=== PATIENT | male | born 1955 | race Caucasian/White ===

== ENCOUNTER 2018-05-12 07:28 | Day surgery (SDC) | payer OTHER ==
--- NOTE | 2018-05-07 14:49 | RAD REPORT ---
EXAM DESCRIPTION: Matthias Slater (2 Views)05/07/2018 2:39 pm CLINICAL HISTORY: Abdominal pain/preop for umbilical surgery COMPARISON: None FINDINGS: The lungs appear clear of acute infiltrate. The heart is normal size IMPRESSION: No acute abnormalities displayed
--- NOTE | 2018-05-07 15:13 | EKG ---
Test Date: 2018-05-07 Test Time: 14:25:23 Strategic Planning Analyst: KAROL MEASUREMENT RESULTS: Intervals: Rate: 88 LA: 152 QRSD: 100 QT: 372 QTc: 450 Susan: P: 23 LA: 152 QRS: -23 T: 39 INTERPRETIVE STATEMENTS: Normal sinus rhythm Normal ECG Compared to ECG 10/29/2001 12:49:00 No significant changes Electronically Signed On 05-07-18 15:12:40 CDT by Damien Cedeño
[2018-05-07 15:18] LABS: Potassium 4.1 mmol/L (3.5-5.1)
[2018-05-07 15:22] LABS: Absolute Lymphocytes (CBC) 1.8 K/uL (0.7-4.9); Absolute Monocytes 0.6 K/uL (0.1-1.3); Basophils % 0.8 % (0-1.3); Eosinophils % 3.5 % (0-4.4); Hematocrit 54.4 % (39.6-49.0); MCH 30.8 pg (27.0-35.0); MPV 9.9 fL (7.6-11.3); Monocytes % 6.2 % (3.3-12.3); RBC Red Blood Cell Count 5.91 M/uL (4.33-5.43)
[2018-05-12] MEDS ORDERED: PROPOFOL 200 MG/20 ML VIAL IV ONE (08:00)
[2018-05-12] MEDS ORDERED: LIDOCAINE 2% MPF 5 ML VIAL ONE (08:01)
[2018-05-12] MEDS ORDERED: CEFAZOLIN/SWI 1gm 1 GM/10 ML SYR ONE (08:01)
[2018-05-12] MEDS ORDERED: GLYCOPYRROLATE 0.2 MG/ML SYR ONE (08:01)
[2018-05-12] MEDS ORDERED: FENTANYL CITR 250 MCG/5 ML ONE (08:02)
[2018-05-12] MEDS ORDERED: ONDANSETRON HCL 40 MG/20 ML VIAL ONE (08:04)
[2018-05-12] MEDS ORDERED: ROCURONIUM 50 MG/5 ML VIAL IV ONE (08:04)
[2018-05-12] MEDS ORDERED: NEOSTIGMINE 1 MG/ML -5 ML SYRINGE ONE (08:04)
[2018-05-12] MEDS: NA CHLORIDE 0.9% 1,000 ML ONE ×2 (08:18→08:42)
[2018-05-12] MEDS ORDERED: MIDAZOLAM HCL 2 MG/2 ML INJ ONE (08:47)
--- NOTE | 2018-05-12 10:14 | P.BOP ---
Preoperative diagnosis: periumbilical mass Postoperative diagnosis: same Primary procedure: Excisional biopsy of periumbilical mass, suture removal x 4 Estimated blood loss: <10cc Specimen: suture/mass Findings: periumbical mass with 4 prolene sutures. possible suture granuloma Anesthesia: General Complications: None Transferred to: Recovery Room Condition: Good
--- NOTE | 2018-05-12 23:02 | DS ---
Date of Discharge: 05/12/2018 Diagnosis: Periumbilical mass. Procedure: Excisional biopsy of periumbilical mass and suture removal x4. Disposition: Home. Activity: As tolerated. No lifting. Followup: Follow up in my office in 1 week. Call for appointment on [phone]. Keep the area dry fo r 48 hours, then may shower. RENETTA Voice ID: [id number] Report ID: [id number]
--- NOTE | 2018-05-12 23:02 | OP ---
Date of Procedure: 05/12/2018 Surgeon: Sameer Jewell MD Preoperative Diagnosis: Periumbilical mass. Postoperative Diagnosis: Periumbilical mass. Procedure: Excisional biopsy of periumbilical mass with 4 sutures removal. Specimens: Suture and mass. Findings: The patient has umbilical mass with 4 Prolene sutures, looked like this patient may have a suture granuloma. Anesthesia: General plus local. Indications: This is a case of a 62-year-old patient, who has a periumbilical mass and he now noted that he gets some drainage out of it. The patient had, many years ago, a repair of a hernia in that region. The benefits, alternatives, and risks of mass removal were fully explained. Which include bu t are not limited to infection, bleeding, damage to adjacent structures, anesthesia complication, [place], and even . He also understands if we found a hernia in that region, we might have to fix the u mbilical hernia with benefits, alternatives, and risks of that fully explained too. He said at one p oint, he noticed 1 blue stitch coming through the skin and he trimmed, it has not healed properly. T here is a possibility of ulcer or mass or suture granuloma. Description Of Procedure: The patient was brought to the operating room, placed in supine position. Anesthesia was done without complication. Abdominal area was prepped and draped in usual sterile fa shion. Incision was made in a previous incision, removing also the skin in that area, noticed undern eath 4 Prolene stitches. There was no hernia seen. The mass with the stitches was removed. It look ed like he may have a suture granuloma, although we sent that to the pathologist to have a formal rev iew. The 4 stitches were removed. The area was irrigated. Fascia seemed to be intact with no herni a. So, we proceeded to close the area with 3-0 chromic and the skin with milvia after profuse irrig ation. The patient tolerated the procedure well. The patient was sent to recovery in stable conditi on. Sponge count and instrument counts were correct. NEERAJ/TESSY Voice ID: [id number] Report ID: [id number]
== END 2018-05-12 10:46 | disposition home or self-care (01) ==
LOC: OR 07:28
PROVIDERS: ATTEND Surgery
PROC: 0JB80ZZ Excision of Abdomen Subcutaneous Tissue and Fascia, Open Approach (ICD-10-PCS; principal; 2018-05-12 08:30)
DX: R19.05 Periumbilic swelling, mass or lump (principal)
CPT/HCPCS: 36415; 71046; 80048; 82962; 85025; 88304; 88305; 93005; J0690; J2250; J2405; J2710; J7030